=== PATIENT | male | born 1970 | race Caucasian/White ===

== ENCOUNTER 2018-03-21 18:33 | Inpatient (IN) ==
--- NOTE | 2018-03-21 18:55 | Emergency Department Note ---
Disposition Clinical Impression: Abdominal pain, Acute cholecystitis Disposition: Admitted As Inpatient Condition: Fair General Adult HPI - General Chief complaint: ED Abdominal Pain Stated complaint: ABD Pain Time Seen by Provider: 03/21/18 18:47 - History of Present Illness Pain Scale: 8 - Related Data Home Medications Medication Instructions Recorded Confirmed Cetirizine HCl [All Day Allergy] 10 mg PO DAILY 03/21/18 03/21/18 Pantoprazole Sodium [Protonix] 40 mg PO DAILY 03/21/18 03/21/18 Propranolol LA (24 HR) [Inderal LA] 60 mg PO DAILY 03/21/18 03/21/18 Allergies Allergy/AdvReac Type Severity Reaction Status Date / Time cephalexin [From Keflex] Allergy Hives Verified 03/21/18 18:43 Penicillins Allergy Hives Verified 03/21/18 18:43 Past Medical History - Past Medical History Medical history: Reports: asthma, coronary artery disease, GERD Surgical history: Reports: no surgical history Psychiatric history: Reports: no psych history - Social History Smoking Status: Current every day smoker Smokeless Tobacco Status: No Alcohol use: Reports: none Drug use: Reports: none Physical Exam - General General appearance: alert, in no apparent distress Course Vital Signs Temperature 97.7 F 03/21/18 18:39 Pulse Rate 82 03/21/18 18:39 Respiratory Rate 14 03/21/18 18:39 Blood Pressure 163/94 03/21/18 18:39 O2 Sat by Pulse Oximetry 97 03/21/18 18:39 Temperature 98.5 F 03/21/18 22:59 Pulse Rate 86 03/21/18 22:59 Respiratory Rate 16 03/21/18 22:59 Blood Pressure 151/92 03/21/18 22:59 O2 Sat by Pulse Oximetry 97 03/21/18 22:59 Oxygen Delivery Oxygen Delivery Room Air Medical Decision Making - Lab Data Result diagrams: 03/21/18 19:39 03/21/18 19:39 Lab Results 03/21/18 03/21/18 Range/Units 19:39 19:39 WBC 11.4 H (4.3-11.1) K/mcL RBC 4.97 (4.19-5.50) M/mcL Hgb 15.8 (12.9-16.9) g/dL Hct 45.1 (37.5-50.1) % MCV 90.7 (83.0-100.0) fL MCH 31.8 (28.0-33.3) pg MCHC 35.0 (31.6-35.5) g/dL RDW 12.9 (11.5-14.5) % Plt Count 198 (140-400) K/mcL MPV 10.2 (9.4-12.4) fL Immature Gran % 0.4 (0-4) % Seg Neutrophils % 67.8 % Lymphocytes % 21.8 % Monocytes % 7.1 % Eosinophils % 2.3 % Basophils % 0.6 % Neutrophils # 7.7 (1.6-8.9) K/mcL Lymphocytes # 2.5 (0.6-4.6) K/mcL Monocytes # 0.8 (0.0-1.3) K/mcL Eosinophils # 0.3 (0.0-0.6) K/mcL Basophils # 0.1 (0.0-0.2) K/mcL Sodium 139 (136-145) mEq/L Potassium 3.6 (3.5-5.1) mEq/L Chloride 103 (98-107) mEq/L Carbon Dioxide 30 H (23-29) mEq/L BUN 10 (6-20) mg/dL Creatinine 1.01 (0.70-1.30) mg/dL Est GFR ( Amer) > 60 (> 60) Est GFR (Non-Af Amer) > 60 (> 60) BUN/Creatinine Ratio 10 (6-26) Glucose 107 H (70-105) mg/dL Calculated Osmolality 288 (280-300) Calcium 9.0 (8.6-10.3) mg/dL Total Bilirubin 0.3 (0.3-1.0) mg/dL Direct Bilirubin 0.1 (0.0-0.2) mg/dL Indirect Bilirubin 0.2 (0.0-1.2) mg/dL AST 14 (13-39) Units/L ALT 20 (7-52) Units/L Alkaline Phosphatase 34 (34-104) Units/L Troponin I < 0.03 (< 0.04) ng/mL Serum Total Protein 6.4 (6.4-8.9) g/dL Albumin 4.1 (3.5-5.7) g/dL Globulin 2.3 L (2.4-3.5) g/dL Albumin/Globulin Ratio 1.8 (1.1-2.2) Lipase 36 (11-82) Units/L Attestation Statement - Attestation Attestation: I examined this patient and my medical decision-making was reviewed with the Resident Physician. I agree with the documented findings, disposition and treatment plan as described except to the extent set forth below. [id number] time provided Patient arrives complaining of epigastric pain that radiates to his left upper quadrant after he ate a smoke sausage at a street fair. He states he has had similar problems in the past related to dietary indiscretion. History of GERD. Triage vitals reviewed by me. patient does not appear in any acute distress
[2018-03-21] MEDS ORDERED: Ondansetron 4 MG/2 ML VIAL IVP ONE (19:04)
[2018-03-21] MEDS ORDERED: Pantoprazole 40 MG VIAL IVP ONE (19:04)
--- NOTE | 2018-03-21 19:12 | Emergency Department Note ---
Disposition Clinical Impression: Acute cholecystitis Abdominal pain Qualifiers: Abdominal location: right upper quadrant Qualified Code(s): R10.11 - Right upper quadrant pain Disposition: Admitted As Inpatient Condition: Fair Referrals: Teofilo Flores MD [Primary Care Provider] - Forms: ED Satisfaction Letter, Work/School Release Time of Disposition: 20:55 Abdominal Pain HPI - General Chief Complaint: ED Abdominal Pain Stated Complaint: ABD Pain Time Seen by Provider: 03/21/18 18:47 Source: patient Mode of arrival: ambulatory Limitations: no limitations Nursing Notes Reviewed: Yes Vital Signs Reviewed: Yes - History of Present Illness HPI Narrative: Patient is a 47-year-old male who presents to [facility] ED with a chief complaint of generalized abdominal pain. States his symptoms started 4 days ago after he ate a sausage at a food festival. States it is a burning sensation that radiates from his epigastric region all around his abdomen. Admits to some nausea and one episode of vomiting. No other symptoms of diarrhea. No chest pain, difficulty breathing, problems with urination. Denies any fevers or chills. States he has been taking Prevacid which has not been helping. Pt Subjective Complaint: abdominal pain Onset (ago): day(s) (4) Consistency: constant Location: diffuse Pain Severity: moderate Pain Scale: 8 Quality: burning Radiation: none Migration to: no migration Improves with: nothing Worsens with: nothing Associated symptoms: Reports: nausea, vomiting. Denies: diarrhea, fever, chills , constipation, dysuria Treatments prior to arrival: none - Related Data Home Medications Medication Instructions Recorded Confirmed Cetirizine HCl [All Day Allergy] 10 mg PO DAILY 03/21/18 03/21/18 Pantoprazole Sodium [Protonix] 40 mg PO DAILY 03/21/18 03/21/18 Propranolol LA (24 HR) [Inderal LA] 60 mg PO DAILY 03/21/18 03/21/18 Allergies Allergy/AdvReac Type Severity Reaction Status Date / Time cephalexin [From Keflex] Allergy Hives Verified 03/21/18 18:43 Penicillins Allergy Hives Verified 03/21/18 18:43 All systems ED: reviewed and negative except as stated. Abdominal Pain PMH - Past Medical History Medical history: Reports: asthma, coronary artery disease, GERD Male Surgical History: Reports: no surgical history Psychiatric history: Reports: no psych history - Social History Smoking status: Current every day smoker Alcohol use: Reports: none Drug use: Reports: none Physical Exam - General Limitations: no limitations General appearance: alert, in no apparent distress - Head Head exam: atraumatic - Eye Eye exam: Present: normal appearance, EOMI - ENT ENT exam: normal exam, normal oropharynx, mucous membranes moist - Neck Neck exam: Present: normal inspection, full ROM, trachea midline - Chest Chest inspection: Present: normal inspection, symmetric chest wall rise - Respiratory Respiratory exam: Present: normal lung sounds bilaterally - Cardiovascular Cardiovascular exam: Present: regular rate, normal rhythm, normal heart sounds - Abdominal Exam Abdominal exam: Present: soft, tenderness, normal bowel sounds Abdominal tenderness: Present: diffuse, mild - Extremities Exam Extremities exam: Present: normal inspection, full ROM. Absent: tenderness, pedal edema - Back Exam Back exam: Present: normal inspection, full ROM. Absent: tenderness - Neurological Exam Neurological exam: Present: alert, oriented X3 - Psychiatric Psychiatric exam: Present: normal affect, normal mood - Skin Skin exam: Present: warm Course Course Narrative: Patient seen and examined. Epigastric pain for the last 4 days. Patient is also nauseated. Abdominal lab work, troponin, EKG ordered. No prior abdominal surgeries. Zofran and Protonix were originally ordered. However patient refused this and wanted to have a GI cocktail since this helped him in the past. CT of the abdomen and pelvis without contrast ordered to rule out any acute abdominal pathology. - Consultations Consultation #1: Labwork shows mild leukocytosis of 11.4. Otherwise unremarkable. CT of the abdomen and pelvis shows signs of acute cholecystitis including wall thickening and pericholecystic fluid. I discussed these findings with the patient. I also discussed with surgeon Dr. Reddy who has accepted patient for admission. Patient to be nothing by mouth after midnight. Time: 20:53 Vital Signs Temperature 97.7 F 03/21/18 18:39 Pulse Rate 82 03/21/18 18:39 Respiratory Rate 14 03/21/18 18:39 Blood Pressure 163/94 03/21/18 18:39 O2 Sat by Pulse Oximetry 97 03/21/18 18:39 Temperature 97.7 F 03/21/18 18:39 Pulse Rate 82 03/21/18 18:39 Respiratory Rate 14 03/21/18 18:39 Blood Pressure 163/94 03/21/18 18:39 O2 Sat by Pulse Oximetry 97 03/21/18 18:39 Oxygen Delivery Oxygen Delivery Room Air Abdominal Pain - Medical Records Medical records reviewed: Yes I reviewed the patient's medical records. - Lab Data Lab results reviewed: Yes I reviewed the patient's lab results. - Radiology Data Radiology results reviewed: Yes I reviewed the patient's radiology results. Abdomen/Pelvis CT 03/21/18 19:05 IMPRESSION: Findings concerning for acute cholecystitis. D/ / Oniel Welch MD / Oniel Welch MD Interpreting Provider: Oniel Welch MD - EKG Data EKG attestation: Yes I reviewed and interpreted this EKG. EKG results narrative: EKG done at 1937 shows normal sinus rhythm with a rate of 81 bpm. Right bundle branch block present. Normal axis.
[2018-03-21 19:50] LABS: Basophils # 0.1 K/mcL (0.0-0.2); Basophils % 0.6 %; Eosinophils # 0.3 K/mcL (0.0-0.6); Eosinophils % 2.3 %; Hematocrit 45.1 % (37.5-50.1); Hemoglobin 15.8 g/dL (12.9-16.9); Immature Granulocytes % 0.4 % (0-4); Lymphocytes # 2.5 K/mcL (0.6-4.6); Lymphocytes % 21.8 %; Mean Corpuscular Hemoglobin 31.8 pg (28.0-33.3); Mean Corpuscular Volume 90.7 fL (83.0-100.0); Mean Platelet Volume 10.2 fL (9.4-12.4); Monocytes # 0.8 K/mcL (0.0-1.3); Monocytes % 7.1 %; Neutrophils # 7.7 K/mcL (1.6-8.9); Platelet Count 198 K/mcL (140-400); Red Blood Count 4.97 M/mcL (4.19-5.50); Red Cell Distribution Width 12.9 % (11.5-14.5); Segmented Neutrophils % 67.8 %
[2018-03-21] MEDS ORDERED: GI Cocktail 40 ML EACH PO ONE (20:02)
[2018-03-21 20:12] LABS: Alanine Aminotransferase 20 Units/L (7-52); Albumin 4.1 g/dL (3.5-5.7); Albumin/Globulin Ratio 1.8 (1.1-2.2); Alkaline Phosphatase 34 Units/L (34-104); Aspartate Amino Transferase 14 Units/L (13-39); BUN/Creatinine Ratio 10 (6-26); Bilirubin,Direct 0.1 mg/dL (0.0-0.2); Bilirubin,Indirect 0.2 mg/dL (0.0-1.2); Bilirubin,Total 0.3 mg/dL (0.3-1.0); Blood Urea Nitrogen 10 mg/dL (6-20); Carbon Dioxide 30 mEq/L (23-29); Chloride 103 mEq/L (98-107); Globulin 2.3 g/dL (2.4-3.5); Glucose 107 mg/dL (70-105); Lipase 36 Units/L (11-82); Osmolality,Calculated 288 (280-300); Potassium 3.6 mEq/L (3.5-5.1); Sodium 139 mEq/L (136-145); Total Protein 6.4 g/dL (6.4-8.9); Troponin I < 0.03 ng/mL (< 0.04); eGFR For African Americans > 60 (> 60); eGFR For Non-African Americans > 60 (> 60)
[2018-03-21] MEDS ORDERED: OXYCODONE Oral CONC 10 MG/0.5 ML ORAL.SYG SL PRN (20:55)
[2018-03-21] MEDS ORDERED: *HR* OxyCODONE/APAP 10/325 TABLET PO PRN (20:55)
[2018-03-21] MEDS ORDERED: Ondansetron 4 MG/2 ML VIAL IVP PRN (20:57)
[2018-03-21] MEDS ORDERED: 0.9 % Sodium Chloride 1,000 ML IVC SCH (21:00)
[2018-03-21] MEDS: *HR* Metoprolol 5 MG/5 ML VIAL IVP SCH (22:20)
[2018-03-21] MEDS: MetroNIDAZOLE 500 MG/100 ML 500 MG/100 ML BAG IVPB SCH (23:57)
[2018-03-22] MEDS ORDERED: cefOXitin 2,000 MG in Water for inj. (sterile) 20 ML 20 ML IVP SCH
[2018-03-22 05:25] LABS: Hematocrit 46.8 % (37.5-50.1); Hemoglobin 16.3 g/dL (12.9-16.9); Mean Corpuscular HGB Conc 34.8 g/dL (31.6-35.5); Mean Corpuscular Hemoglobin 32.2 pg (28.0-33.3); Mean Corpuscular Volume 92.5 fL (83.0-100.0); Mean Platelet Volume 10.6 fL (9.4-12.4); Platelet Count 211 K/mcL (140-400); Red Blood Count 5.06 M/mcL (4.19-5.50); Red Cell Distribution Width 12.8 % (11.5-14.5)
[2018-03-22] MEDS: *HR* Metoprolol 5 MG/5 ML VIAL IVP SCH ×3 (05:39→19:00)
[2018-03-22 05:49] LABS: Amylase 35 Units/L (29-103); BUN/Creatinine Ratio 8 (6-26); Blood Urea Nitrogen 8 mg/dL (6-20); Carbon Dioxide 29 mEq/L (23-29); Chloride 104 mEq/L (98-107); Glucose 114 mg/dL (70-105); Lipase 15 Units/L (11-82); Osmolality,Calculated 287 (280-300); Potassium 4.5 mEq/L (3.5-5.1); Sodium 139 mEq/L (136-145); eGFR For African Americans > 60 (> 60); eGFR For Non-African Americans > 60 (> 60)
[2018-03-22 07:07] LABS: Alanine Aminotransferase 21 Units/L (7-52); Albumin 4.2 g/dL (3.5-5.7); Albumin/Globulin Ratio 1.8 (1.1-2.2); Alkaline Phosphatase 35 Units/L (34-104); Aspartate Amino Transferase 13 Units/L (13-39); Bilirubin,Direct 0.1 mg/dL (0.0-0.2); Bilirubin,Indirect 0.4 mg/dL (0.0-1.2); Bilirubin,Total 0.5 mg/dL (0.3-1.0); Globulin 2.4 g/dL (2.4-3.5); Total Protein 6.6 g/dL (6.4-8.9)
--- NOTE | 2018-03-22 07:30 | General Surg History&Physical ---
<Hector Ayala - Last Filed: 03/22/18 07:22> Date of Encounter: 03/22/18 Time of Encounter: 06:45 Assessment and Plan (1) Acute cholecystitis Current Visit: Yes Status: Acute Fatty food intolerance + positive CT findings including GB wall thickening, stones in lumen, and pericholecystic fluid. Pancreatic enzymes were negative and pt was not relieved with PPIs. PUD less likely. Pancreatitis unlikely. - plan is lap cholecystectomy - NPO pending surgery - Cont Abx (Cipro/Flagyl day 1) - IVF at maintenance rate - other supportive measures as needed - dispo pending timing of surgery and post-op recovery (2) Tobacco use Current Visit: Yes Status: Acute Counseled cessation. Pt declined nicoderm. History of Present Illness Chief complaint: epigastric burning HPI: Mr. Mukherjee is a 47 year old male with no formal medical diagnoses or prior intra -abdominal surgeries. He does smoke 1.5 packs of cigarettes daily x30 years. He has had history of epigastric burning pain for the past month that is associated with greasy food. States takes PPI for this, but denies relief. Acute course began on Tuesday when patient ate a bratwurst at a food festival. At that time, pain was moderate and was more widespread in epigastrium and LUQ/ RUQ. He denies radiation, migration, or focal positional changes with worst pain persisting at mid epigastrium. Denies vomiting, but has been nauseous. No abnormal stools, hematochezia, melena, dysuria, or hematuria. No associated back pain. He does say he had a "scope down my throat" several years ago at an outside hospital which he says only demonstrated inflammation. This record is not available to us at present. ED work up was overall negative except for a CT-abd which demonstrated gallbladder wall thickening, pericholecystic fluid, and stones within GB lumen. Pt admitted NPO. Denies: weight change, dizziness/lightheadedness, syncope, fevers, chills, sweats, blurred vision, headache, chest pain, palpitations, SOA, vomiting, diarrhea, constipation, hematochezia, melena, dysuria, hematuria, leg swelling, or rash. Past Med Surg Social Fam HX - Past Medical History Attestation: Yes The following information was validated with the patient. Source: patient Medical history: asthma, coronary artery disease, GERD Psychiatric history: no psych history - Past Surgical History Surgical History: no surgical history - Social History Smoking Status: Current every day smoker (1.5 ppd x30 years) Smokeless Tobacco Status: No Alcohol use: none Drug use: none Medications and Allergies Cetirizine HCl [All Day Allergy] 10 mg PO DAILY 03/21/18 [History] Pantoprazole Sodium [Protonix] 40 mg PO DAILY 03/21/18 [History] Propranolol LA (24 HR) [Inderal LA] 60 mg PO DAILY 03/21/18 [History] 3 Allergy/AdvReac Type Severity Reaction Status Date / Time cephalexin [From Keflex] Allergy Hives Verified 03/21/18 18:43 Penicillins Allergy Hives Verified 03/21/18 18:43 Review of Systems All systems PM: The remainder of the systems were reviewed and are negative - Constitutional as per [facility] General Surgery Exam Initial Vital Signs Temp Pulse Resp BP Pulse Ox 97.7 F 82 14 163/94 97 03/21/18 18:39 03/21/18 18:39 03/21/18 18:39 03/21/18 18:39 03/21/18 18:39 VITAL SIGNS: Reviewed. See [facility] GENERAL: supine in bed and appears comfortable. Conversational and cooperative. HEENT: Normocephalic, PER, EOMi, oropharynx pink/moist, no JVD noted CV: b/l rad pulses 2+, RRR, no murmurs or gallops, no JVD seen RESPIRATORY: CTAB without wheezes, rales, or rhonchi ABD: soft, tender in UQs and epigastrium with no guarding, no rebound/distention /rigidity, no peritoneal signs EXTREMITY: grossly normal motor function, no pedal edema NEUROLOGIC EXAM: AOx3, obeys commands, no speech deficits. PSYCHIATRIC: normal mood and affect SKIN: no gross lesions, rashes, or skin changes Results - Labs 03/22/18 04:41 03/22/18 04:41 Abnormal lab results WBC 12.3 K/mcL (4.3-11.1) H 03/22/18 04:41 Glucose 114 mg/dL (70-105) H 03/22/18 04:41 POC Glucose 116 mg/dL (70-99) H 03/22/18 05:36 Diabetes panel 03/22/18 Range/Units 04:41 Sodium 139 (136-145) mEq/L Potassium 4.5 (3.5-5.1) mEq/L Chloride 104 (98-107) mEq/L Carbon Dioxide 29 (23-29) mEq/L BUN 8 (6-20) mg/dL Creatinine 0.99 (0.70-1.30) mg/dL Glucose 114 H (70-105) mg/dL Calcium 9.0 (8.6-10.3) mg/dL AST 13 (13-39) Units/L ALT 21 (7-52) Units/L Alkaline Phosphatase 35 (34-104) Units/L Albumin 4.2 (3.5-5.7) g/dL Calcium panel 03/22/18 Range/Units 04:41 Calcium 9.0 (8.6-10.3) mg/dL Albumin 4.2 (3.5-5.7) g/dL Pituitary panel 03/22/18 Range/Units 04:41 Sodium 139 (136-145) mEq/L Potassium 4.5 (3.5-5.1) mEq/L Chloride 104 (98-107) mEq/L Carbon Dioxide 29 (23-29) mEq/L BUN 8 (6-20) mg/dL Creatinine 0.99 (0.70-1.30) mg/dL Glucose 114 H (70-105) mg/dL Calcium 9.0 (8.6-10.3) mg/dL Adrenal panel 03/22/18 Range/Units 04:41 Sodium 139 (136-145) mEq/L Potassium 4.5 (3.5-5.1) mEq/L Chloride 104 (98-107) mEq/L Carbon Dioxide 29 (23-29) mEq/L BUN 8 (6-20) mg/dL Creatinine 0.99 (0.70-1.30) mg/dL Glucose 114 H (70-105) mg/dL Calcium 9.0 (8.6-10.3) mg/dL Total Bilirubin 0.5 (0.3-1.0) mg/dL AST 13 (13-39) Units/L ALT 21 (7-52) Units/L Alkaline Phosphatase 35 (34-104) Units/L Albumin 4.2 (3.5-5.7) g/dL All other labs normal. <Clark Reddy T - Last Filed: 03/22/18 10:23> Date of Encounter: 03/22/18 History of Present Illness HPI: Mr. Mukherjee is a 47 year old male Review of Systems All systems PM: The remainder of the systems were reviewed and are negative General Surgery Exam Initial Vital Signs Temp Pulse Resp BP Pulse Ox 97.7 F 82 14 163/94 97 03/21/18 18:39 03/21/18 18:39 03/21/18 18:39 03/21/18 18:39 03/21/18 18:39 Results - Labs 03/22/18 04:41 03/22/18 04:41 Abnormal lab results WBC 12.3 K/mcL (4.3-11.1) H 03/22/18 04:41 Glucose 114 mg/dL (70-105) H 03/22/18 04:41 POC Glucose 116 mg/dL (70-99) H 03/22/18 05:36 Diabetes panel 03/22/18 Range/Units 04:41 Sodium 139 (136-145) mEq/L Potassium 4.5 (3.5-5.1) mEq/L Chloride 104 (98-107) mEq/L Carbon Dioxide 29 (23-29) mEq/L BUN 8 (6-20) mg/dL Creatinine 0.99 (0.70-1.30) mg/dL Glucose 114 H (70-105) mg/dL Calcium 9.0 (8.6-10.3) mg/dL AST 13 (13-39) Units/L ALT 21 (7-52) Units/L Alkaline Phosphatase 35 (34-104) Units/L Albumin 4.2 (3.5-5.7) g/dL Calcium panel 03/22/18 Range/Units 04:41 Calcium 9.0 (8.6-10.3) mg/dL Albumin 4.2 (3.5-5.7) g/dL Pituitary panel 03/22/18 Range/Units 04:41 Sodium 139 (136-145) mEq/L Potassium 4.5 (3.5-5.1) mEq/L Chloride 104 (98-107) mEq/L Carbon Dioxide 29 (23-29) mEq/L BUN 8 (6-20) mg/dL Creatinine 0.99 (0.70-1.30) mg/dL Glucose 114 H (70-105) mg/dL Calcium 9.0 (8.6-10.3) mg/dL Adrenal panel 03/22/18 Range/Units 04:41 Sodium 139 (136-145) mEq/L Potassium 4.5 (3.5-5.1) mEq/L Chloride 104 (98-107) mEq/L Carbon Dioxide 29 (23-29) mEq/L BUN 8 (6-20) mg/dL Creatinine 0.99 (0.70-1.30) mg/dL Glucose 114 H (70-105) mg/dL Calcium 9.0 (8.6-10.3) mg/dL Total Bilirubin 0.5 (0.3-1.0) mg/dL AST 13 (13-39) Units/L ALT 21 (7-52) Units/L Alkaline Phosphatase 35 (34-104) Units/L Albumin 4.2 (3.5-5.7) g/dL All other labs normal. - Attending Attestation I examined this patient and my medical decision-making was reviewed with the Resident Physician. I agree with the documented findings, disposition and treatment plan as described except to the extent set forth below. The patient is seen and evaluated on morning rounds with the resident. I personally reviewed the CAT scan films and shared this information with the patient and correlated with his physical examination. Diagnosis is acute: Cholelithiasis and cholecystitis. We will continue IV antibiotics today. Proceed with laparoscopic cholecystectomy later today. Clark Reddy MD FACS
[2018-03-22] MEDS ORDERED: 0.9 % Sodium Chloride 1,000 ML IVC SCH (07:40)
[2018-03-22] MEDS: MetroNIDAZOLE 500 MG/100 ML 500 MG/100 ML BAG IVPB SCH ×2 (09:42→16:57)
[2018-03-22] MEDS ORDERED: Levalbuterol Neb 0.63 MG/3 ML IH SCH (15:30)
[2018-03-22] MEDS ORDERED: Famotidine 20 MG/2 ML VIAL IVP ONE (15:43)
[2018-03-22] MEDS ORDERED: Acetaminophen IV 1,000 MG/100 ML INFUS..BTL IVPB ONE (15:43)
--- NOTE | 2018-03-22 15:50 | Anesthesia Evaluation PreOp ---
Date of Encounter: 03/22/18 Time of Encounter: 15:30 - Past History Planned Operation: Lap Cholecystectomy Cardiac History: Arrhythmia (Tachycardia), Other (CAD) Pulmonary History: Smoker, Asthma HEALTH SERVICES ADMINISTRATOR History: Denies Any Significant HX Other Medical History: GERD Anesthesia History: No Prior Anesthetic Complications Alcohol Use: none Drug use: none Medications and Allergies Cetirizine HCl [All Day Allergy] 10 mg PO DAILY 03/21/18 [History] Pantoprazole Sodium [Protonix] 40 mg PO DAILY 03/21/18 [History] Propranolol LA (24 HR) [Inderal LA] 60 mg PO DAILY 03/21/18 [History] 3 Allergy/AdvReac Type Severity Reaction Status Date / Time cephalexin [From Keflex] Allergy Hives Verified 03/21/18 18:43 Penicillins Allergy Hives Verified 03/21/18 18:43 - Meds/Allergy Pre-op Review Medications Reviewed: Yes Allergies Reviewed: Yes Beta Blockers on Current Med List: Yes (Metoprolol given midnight 5-9) Anesthesia Results - Labs 03/22/18 04:41 03/22/18 04:41 - Imaging EKG: report reviewed (SR) Additional studies: Stress Test 2016 negative for ischemia, ECHO EF 55% Anesthesia Exam Vital Signs/O2 Sat/Glucose, Most Current Temp Pulse Resp BP Pulse Ox 03/22/18 15:32 18 95 03/22/18 12:09 98.5 F 101 18 142/91 95 Height: 5'7 Weight: 177 lbs NPO (# of Hours): MN Pain Scale: 0 - HEENT Pupil (Motor): Pupils equal, EOMI Mallampati: III Oral Opening: Less than or equal to 3 - HEALTH SERVICES ADMINISTRATOR LOC: Oriented HEALTH SERVICES ADMINISTRATOR Motor: Normal RUE, Normal LUE, Normal RLE, Normal LLE, Normal Face HEALTH SERVICES ADMINISTRATOR Sensory: Normal: RUE, LUE, RLE, LLE, Face - Cardiac Rhythm: Regular Murmur: None JVD: No Carotid Bruit: No - Pulmonary Breath Sounds: bilateral Clear Respiratory Effort: Symmetrical Anesthesia Assess/Plan ASA Score: 3 (CAD Tobacco) Modified Glover Scale for Level of Consciousness: Cooperative, oriented, and tranquil Anesthetic Plan: General Monitoring Plan: Standard Monitors Recovery Plan: PACU (Discussed GA, agrees to proceed)
[2018-03-22] MEDS ORDERED: *HR* FentaNYL (PF) 100 MCG/2 ML VIAL ONE ×2 (15:57→16:53)
[2018-03-22] MEDS ORDERED: *HR* Midazolam HCl 2 MG/2 ML VIAL ONE (15:57)
[2018-03-22] MEDS ORDERED: *HR* Propofol 200 MG/20 ML VIAL IVP ONE (15:58)
[2018-03-22] MEDS ORDERED: *HR* Rocuronium Bromide 50 MG/5 ML VIAL ONE (16:01)
[2018-03-22] MEDS ORDERED: Lidocaine -MPF 2% 2 ML VIAL ONE (16:01)
[2018-03-22] MEDS ORDERED: *HR* Succinylcholine 200 MG/10 ML VIAL IVP ONE (16:01)
[2018-03-22] MEDS ORDERED: Acetaminophen IV 1,000 MG/100 ML INFUS..BTL ONE (16:04)
[2018-03-22] MEDS ORDERED: Famotidine 20 MG/2 ML VIAL ONE (16:04)
[2018-03-22] MEDS ORDERED: CefOXitin 1,000 MG VIAL ONE (16:07)
[2018-03-22] MEDS ORDERED: MetroNIDAZOLE 500 MG/100 ML 500 MG/100 ML BAG IVPB ONE (16:07)
[2018-03-22] MEDS ORDERED: Isovue-300 50 ML VIAL IVP ONE (16:16)
[2018-03-22] MEDS ORDERED: Ondansetron 4 MG/2 ML VIAL IVP ONE (16:24)
[2018-03-22] MEDS ORDERED: *HR* OxyCODONE Immed Rel 5 MG TABLET PO PRN (16:24)
[2018-03-22] MEDS ORDERED: *HR* HYDROmorphone 2 MG TABLET PO PRN (16:24)
[2018-03-22] MEDS ORDERED: MORPHINE SUL Oral CONC 10 MG/0.5 ML ORAL.SYG SL PRN (16:24)
[2018-03-22] MEDS ORDERED: Dexamethasone 4 MG/ML VIAL ONE (16:50)
[2018-03-22] MEDS ORDERED: Ondansetron 4 MG/2 ML VIAL ONE (16:50)
[2018-03-22] MEDS ORDERED: Ketorolac 30 MG/ML VIAL ONE (16:52)
[2018-03-22] MEDS ORDERED: Neostigmine Methylsulfate 3 MG/3 ML SYRINGE ONE (16:52)
[2018-03-22] MEDS ORDERED: Esmolol 100 MG/10 ML VIAL IVP ONE (17:00)
--- NOTE | 2018-03-22 17:52 | Operative Note ---
Date of procedure: 03/22/18 Pre-op diagnosis: Acute cholecystitis and cholelithiasis Post-op diagnosis: same Procedure: Laparoscopic cholecystectomy, cholangiogram, +30% acute cholecystitis with gallbladder necrosis Anesthesia: CALEBA Surgeon: Clark Reddy Was there an physiotherapy assistant present: Yes Stunt Driver: Siomara Huang Estimated blood loss (cc): 50 Specimen: Gallbladder and contents Condition: stable Disposition: PACU Procedure in Detail: After informed consent the patient is taken to the major operative suite placed in the supine position and given adequate general endotracheal anesthesia. The abdomen was prepped and draped in sterile fashion utilizing ChloraPrep and standard draping techniques. Timeout was taken and the patient was identified. I made a vertical midline incision below the umbilicus and dissected down the level of the fascia. 2 stitches of 0 Vicryl were placed in the action and the abdomen was entered visually. I placed a Gomez trocar. The abdomen was insufflated to 15 mmHg pressure CO2. The gallbladder was visualized. The gallbladder was acutely inflamed and encased in inflammatory adhesions as well as obstructed. Portions the gallbladder appeared to be necrotic. The gallbladder was decompressed with decompression needle. I suctioned pus from the lumen of the gallbladder. The gallbladder was grasped and elevated. Portions of the gallbladder wall were necrotic making dissection very difficult. I dissected the neck of the gallbladder and I was able to identify the cystic duct and cystic artery. 2 surgical clips were placed proximally on the cystic artery and one distally. A surgical clip was placed on the neck of the gallbladder. I obtained a cholangiogram. The cholangiogram was normal. The cholangiogram catheter was removed and the cystic duct was secured with 2 surgical clips proximally. I then divided the cystic duct and the cystic artery. The gallbladder dissection off the gallbladder fossa was very difficult. There were areas of patchy necrosis and direct erosion into the hepatic tissue. The gallbladder ruptured in several areas and spilled gallstones. These were later recovered with stone forceps. The gallbladder was removed through the #11 port site using a specimen bag. I replaced the #11 port irrigated with copious amounts of antibiotic containing solution. There is tremendous amount of inflammation in subhepatic space. I placed #10 Jasvir- Valdez drain. This was secured with 2-0 silk. All trochars were removed. The fascia was closed with 0 Vicryl and the skin closed with 2-0 Vicryl and 4-0 Vicryl. The patient tolerated the procedure well and is transferred to recovery in stable condition.
--- NOTE | 2018-03-22 18:27 | Anesthesia Evaluation Post Op ---
Date of Encounter: 03/22/18 Time of Encounter: 18:35 - Vital Signs Vital Signs: Vital Signs/O2 Sat/Glucose, Most Current Temp Pulse Resp BP Pulse Ox 03/22/18 18:13 82 18 116/82 94 03/22/18 18:03 74 16 121/86 99 03/22/18 17:53 98.3 F 78 20 107/58 96 03/22/18 15:32 18 95 - Lungs Lungs: Clear Ascult./Percussion - Airway Airway: Non-obstructed - Cardiovascular Regular Rate - Mental Status Mental Status: Alert & Oriented, Answers Appropriately - Pain Pain Scale: 1 - Nausea Vomiting Nausea Vomiting: Not Present - Hydration Hydration: Ice chips - Discharge PostOp Status: Transfer Patient to floor
[2018-03-22] MEDS ORDERED: OXYCODONE Oral CONC 10 MG/0.5 ML ORAL.SYG SL PRN (19:00)
[2018-03-22] MEDS ORDERED: Ondansetron 4 MG/2 ML VIAL IVP PRN (19:00)
[2018-03-22] MEDS: *HR* OxyCODONE/APAP 10/325 TABLET PO PRN (20:58)
[2018-03-22] MEDS: 0.9 % Sodium Chloride 1,000 ML IVC SCH (20:59)
[2018-03-22] MEDS: *HR* Heparin 5,000 UNIT/ML VIAL SQ SCH (20:59)
[2018-03-23] MEDS ORDERED: *HR* Metoprolol 5 MG/5 ML VIAL IVP SCH
[2018-03-23] MEDS ORDERED: MetroNIDAZOLE 500 MG/100 ML 500 MG/100 ML BAG IVPB SCH
[2018-03-23] MEDS: *HR* OxyCODONE/APAP 10/325 TABLET PO PRN ×3 (01:07→09:43)
[2018-03-23] MEDS: *HR* Heparin 5,000 UNIT/ML VIAL SQ SCH (05:21)
--- NOTE | 2018-03-23 05:27 | Electrocardiograph Report ---
[place] [id number] Test Date: 2018-03-21 Pat Name: Epifanio Mukherjee Department: 103 Room: [facility] Gender: M Personal Care Worker: : 1970 Requested By: Abi Quinones Order Number: [id number] Reading MD: Bong Mora Measurements Intervals [place] Rate: 81 P: 66 RI: 163 QRS: 24 QRSD: 88 T: 49 QT: 343 QTc: 380 Interpretive Statements SINUS RHYTHM POSSIBLE RIGHT VENTRICULAR CONDUCTION DELAY Electronically Signed On 03-23-2018 5:26:07 EDT by Bong Mora
[2018-03-23] MEDS: 0.9 % Sodium Chloride 1,000 ML IVC SCH (05:35)
[2018-03-23 06:36] LABS: Basophils % 0.2 %; Hematocrit 42.3 % (37.5-50.1); Immature Granulocytes % 0.3 % (0-4); Lymphocytes # 1.1 K/mcL (0.6-4.6); Lymphocytes % 9.2 %; Mean Corpuscular Hemoglobin 31.8 pg (28.0-33.3); Mean Corpuscular Volume 93.4 fL (83.0-100.0); Mean Platelet Volume 10.8 fL (9.4-12.4); Monocytes # 0.8 K/mcL (0.0-1.3); Monocytes % 6.3 %; Neutrophils # 10.4 K/mcL (1.6-8.9); Platelet Count 194 K/mcL (140-400); Red Blood Count 4.53 M/mcL (4.19-5.50); Red Cell Distribution Width 13.1 % (11.5-14.5)
[2018-03-23 06:37] LABS: Hemoglobin 14.4 g/dL (12.9-16.9)
[2018-03-23 06:39] LABS: BUN/Creatinine Ratio 12 (6-26); Blood Urea Nitrogen 11 mg/dL (6-20); Calcium 8.2 mg/dL (8.6-10.3); Carbon Dioxide 22 mEq/L (23-29); Chloride 106 mEq/L (98-107); Glucose 105 mg/dL (70-105); Osmolality,Calculated 286 (280-300); Potassium 4.4 mEq/L (3.5-5.1); Sodium 138 mEq/L (136-145); eGFR For African Americans > 60 (> 60); eGFR For Non-African Americans > 60 (> 60)
[2018-03-23 06:52] VITALS: BP 122/76
--- NOTE | 2018-03-23 07:31 | Discharge Summary ---
<Hector Ayala - Last Filed: 03/23/18 07:27> - NOTES TO OUTPATIENT PROVIDER Notes to Outpatient Provider: Patient is status post laparoscopic cholecystectomy; gallbladder was removed with purulence and necrotic features. Patient discharged with NATHEN drain in place and close follow-up with surgery as outpatient. Patient was sent home to complete full seven-day course of ciprofloxacin and Flagyl. Patient does have comorbidities including significant smoking history, possible COPD, and stated history of CAD, all of which may need to be revisited. Date of Encounter: 03/23/18 Time of Encounter: 06:30 - Discharge Diagnosis (1) Acute cholecystitis Priority: Primary Status: Acute Comments: POD#1 laparoscopic cholecystectomy -- GB has areas of wall necrosis, adherence to liver margin, and purulent accumulation. D/C'ed on 7-days of Abx. (2) Tobacco use Priority: Secondary Status: Chronic Comments: Counseled cessation General Surgery Exam Initial Vital Signs Temp Pulse Resp BP Pulse Ox 97.7 F 82 14 163/94 97 03/21/18 18:39 03/21/18 18:39 03/21/18 18:39 03/21/18 18:39 03/21/18 18:39 VITAL SIGNS: Reviewed. See [facility] GENERAL: comfortably supine in bed, pleasant, conversational, cooperates with exam HEENT: Normocephalic, PER, EOMi, oropharynx pink/moist, no JVD noted. CV: b/l rad pulses 2+, RRR, no murmurs or gallops, no JVD RESPIRATORY: CTAB with virtually no wheezing on exam today ABD: soft, non-tender, no rebound/guarding/rigidity, no peritoneal signs INCISION: trocar sites are clean, dry, intact without purulence/bleeding/edema/ rubor/calor DRAINS: NATHEN site without signs of infection; bulb contains approximately 20 mLs of clear serosanguinous fluid EXTREMITY: grossly normal motor function, no pedal edema, SCDs in place NEUROLOGIC EXAM: AOx3, obeys commands, no speech deficits. PSYCHIATRIC: normal mood and affect SKIN: no gross lesions, rashes, or skin changes - Hospital Course Hospital course: Mr. Mukherjee is a 47 year old male with history of smoking, and possible CAD who is admitted for subacute epigastric abdominal pain that acutely worsened on . Initialize normal, however, CT demonstrated acutely inflamed gallbladder. Patient was kept NPO and taken to the OR on 03/22/[address] teixeira. Laparoscopic cholecystectomy successfully performed; per operative note, gross quality of gallbladder was described as acutely inflamed, encased in inflammatory adhesions, obstructed, distended with pus, and with areas of wall necrosis. NATHEN drain was placed in the OR; one day postop, NTAHEN drain collects minimal serosanguinous fluid. No signs of postop incision site infection. Patient has been on antibiotics throughout hospital course including ciprofloxacin and Flagyl. Labs and vitals have been normal throughout hospitalization. Pain has been well-controlled with oral oxycodone. Pain is overall significantly improved and initial symptoms have apparently resolved per patient, with expected post op surgical site tenderness. No evidence of acute blood loss on a.m. labs. No significant signs of postop ileus as patient does have positive flatus, patient does have appetite and is tolerating PO intake. Vital signs stable upon discharge. Despite condition of gallbladder, feel patient is a viable candidate for discharge today given his significant improvement; have arranged for close follow-up in general surgery clinic with Dr. Reddy on 03/28/2018. NATHEN drain left in place, patient has been given aftercare instructions. All cautions have been explained to the patient and he expresses understanding. Patient requests referral to new PCP, and will be referred to the residency clinic to see Dr. Eduar Delgado. - Time Spent with Patient Total time spent providing and/or coordinating discharge services: - Discharge Medications Prescriptions: Ondansetron ODT [Zofran ODT] 4 mg SL Q6HR #15 tab.rapdis OxyCODONE/APAP 5/325 [Percocet 5/325 MG] 1 each PO Q6HR PRN 7 Days #28 tablet PRN Reason: Severe Pain Ibuprofen 800 mg PO Q8HR PRN #42 tablet PRN Reason: Mild Pain Ciprofloxacin [Cipro] 500 mg PO BID #14 tablet Docusate Sodium [Colace] 100 mg PO BID 7 Days #14 capsule metroNIDAZOLE [Flagyl] 500 mg PO TID 7 Days #21 tablet Home Medications: Cetirizine HCl [All Day Allergy] 10 mg PO DAILY 03/21/18 [History] Pantoprazole Sodium [Protonix] 40 mg PO DAILY 03/21/18 [History] Propranolol LA (24 HR) [Inderal LA] 60 mg PO DAILY 03/21/18 [History] Ciprofloxacin [Cipro] 500 mg PO BID #14 tablet 03/23/18 [Rx] Docusate Sodium [Colace] 100 mg PO BID 7 Days #14 capsule 03/23/18 [Rx] Ibuprofen 800 mg PO Q8HR PRN #42 tablet 03/23/18 [Rx] Ondansetron ODT [Zofran ODT] 4 mg SL Q6HR #15 tab.rapdis 03/23/18 [Rx] OxyCODONE/APAP 5/325 [Percocet 5/325 MG] 1 each PO Q6HR PRN 7 Days #28 tablet [Rx] metroNIDAZOLE [Flagyl] 500 mg PO TID 7 Days #21 tablet 03/23/18 [Rx] Allergies/Adverse Reactions: 3 Allergy/AdvReac Type Severity Reaction Status Date / Time cephalexin [From Keflex] Allergy Hives Verified 03/21/18 18:43 Penicillins Allergy Hives Verified 03/21/18 18:43 Date of admission: 03/22/18 17:44 Primary care physician: Teofilo Flores MD Discharging clinician: Hector Ayala Anticipated date of discharge: 03/23/18 Labs on day of discharge: Labs from last 24 hours 03/23/18 03/23/18 04:56 04:56 WBC 12.3 H RBC 4.53 Hgb 14.4 D Hct 42.3 MCV 93.4 MCH 31.8 MCHC 34.0 RDW 13.1 Plt Count 194 MPV 10.8 Immature Gran % 0.3 Seg Neutrophils % 84.0 Lymphocytes % 9.2 Monocytes % 6.3 Eosinophils % 0.0 Basophils % 0.2 Neutrophils # 10.4 H Lymphocytes # 1.1 Monocytes # 0.8 Eosinophils # 0.0 Basophils # 0.0 Sodium 138 Potassium 4.4 Chloride 106 Carbon Dioxide 22 L BUN 11 Creatinine 0.94 Est GFR ( Amer) > 60 Est GFR (Non-Af Amer) > 60 BUN/Creatinine Ratio 12 Glucose 105 Calculated Osmolality 286 Calcium 8.2 L - Patient Status Disposition: Home, Self-Care Condition: Good Functional capacity at discharge: independent ambulation Overall status at discharge: patient is progressing back to baseline - Discharge Instructions Instructions: Low Fat Diet (DC), Jasvir-Valdez Drain Care (DC), Laparoscopic Cholecystectomy (DC) Follow Up With: Clark Reddy MD [Partnered Physician] - 03/28/18 11:00 am Eduar Delgado DO [Resident] - 04/14/18 4:00 pm (within 4 weeks; needs record release from previous PCP, Dr. Teofilo Flores to be sent to [facility] -- Dr. Eduar Delgado. Spoke with Dr. Flores's Office, they will need patient to come in and sign a release to send records. Spoke with patient and he will go in and sign release. Thank you) Additional Instructions: Please review discharge instruction handouts provided to you, particularly regarding NATHEN drain care and diet. Please take antibiotics until completion. Follow up with General Surgery Clinic on 03/28/[address] Reddy. Follow up with Dr. Eduar Delgado in the residency clinic on 04/14/18 at 1pm to establish care with new PCP. Call the general surgery clinic or return to the ER for further evaluation if you have new or worsening symptoms including, but not limited to: fevers, chills , sweats, body aches, general fatigue, chest pain, heart palpitations, worsening shortness of breath, nausea, vomiting, recurrent abdominal pain, or any signs of blood in your stools. - Diet and Activity Activity: increase activity as tolerated Diet: low fat, low cholesterol <Clark Reddy - Last Filed: 03/24/18 11:48> Date of Encounter: 03/23/18 General Surgery Exam Initial Vital Signs Temp Pulse Resp BP Pulse Ox 97.7 F 82 14 163/94 97 03/21/18 18:39 03/21/18 18:39 03/21/18 18:39 03/21/18 18:39 03/21/18 18:39 - Hospital Course Hospital course: Mr. Mukherjee is a 47 year old male - Time Spent with Patient Total time spent providing and/or coordinating discharge services: Date of admission: 03/22/18 17:44 Primary care physician: Teofilo Flores MD - Attending Attestation For this encounter, I have reviewed the [employer] or PA documentation, treatment plan, and medical decision making; and I have had face to face time with this patient. The patient was seen and evaluated on morning rounds with resident. He is ready for discharge on oral antibiotics. Clark Reddy MD FACS
[2018-03-23] MEDS ORDERED: Propranolol LA (24 HR) 60 MG CAP.SA.24H PO SCH ×2 (09:00)
== END 2018-03-23 10:18 | disposition home or self-care (01) | DRG 263 ==
LOC: 3ANU 18:33 → EMEROO 18:33 → 3ANU 21:18
PROVIDERS: ADMIT Surgery; ATTEND Surgery

== ENCOUNTER 2019-12-24 13:52 | Observation (INO) ==
[2019-12-24] MEDS ORDERED: Aspirin 325 MG TABLET PO ONE (14:06)
[2019-12-24 14:57] LABS: Basophils # 0.1 K/mcL (0.0-0.2); Basophils % 0.7 %; Eosinophils # 0.1 K/mcL (0.0-0.6); Eosinophils % 0.9 %; Hematocrit 53.6 % (37.5-50.1); Hemoglobin 18.3 g/dL (12.9-16.9); Immature Granulocytes % 0.3 % (0-4); Lymphocytes # 1.9 K/mcL (0.6-4.6); Lymphocytes % 19.7 %; Mean Corpuscular HGB Conc 34.1 g/dL (31.6-35.5); Mean Corpuscular Hemoglobin 32.1 pg (28.0-33.3); Mean Platelet Volume 10.8 fL (9.4-12.4); Monocytes # 0.6 K/mcL (0.0-1.3); Monocytes % 6.1 %; Platelet Count 232 K/mcL (140-400); Red Cell Distribution Width 13.2 % (11.5-14.5); Segmented Neutrophils % 72.3 %; White Blood Count 9.7 K/mcL (4.3-11.1)
[2019-12-24 15:17] LABS: BUN/Creatinine Ratio 8 (6-26); Blood Urea Nitrogen 8 mg/dL (6-20); Calcium 9.5 mg/dL (8.6-10.3); Carbon Dioxide 26 mEq/L (23-29); Chloride 106 mEq/L (98-107); Glucose 109 mg/dL (70-105); Osmolality,Calculated 289 (280-300); Potassium 3.9 mEq/L (3.5-5.1); Sodium 140 mEq/L (136-145); Troponin I < 0.03 ng/mL (< 0.04); eGFR For African Americans > 60 (> 60); eGFR For Non-African Americans > 60 (> 60)
[2019-12-24] MEDS ORDERED: Acetaminophen 325 MG TABLET PO PRN (15:26)
[2019-12-24] MEDS ORDERED: *HR* Promethazine 25 MG/ML VIAL IVP PRN (15:26)
[2019-12-24] MEDS ORDERED: MOM Conc 10 ML UD.LIQ PO PRN (15:26)
[2019-12-24] MEDS ORDERED: Mag Hydrox/Al Hydrox/Simeth 30 ML UDC PO PRN (15:26)
[2019-12-24] MEDS ORDERED: Naloxone 0.4 MG/ML INJ IVP PRN (15:26)
[2019-12-24] MEDS ORDERED: Ondansetron 4 MG/2 ML VIAL IVP PRN (15:26)
[2019-12-24] MEDS ORDERED: Nitroglycerin 0.4 MG TAB.SUBL SL PRN (15:29)
[2019-12-24 17:39] VITALS: BP 143/97
[2019-12-24] MEDS ORDERED: *HR* Heparin 5,000 UNIT/ML VIAL SQ SCH (18:00)
[2019-12-25] MEDS ORDERED: Aspirin Enteric Coated 81 MG Tablet PO SCH (09:00)
== END 2019-12-24 18:59 | disposition left against medical advice (07) ==
LOC: 3BNU 13:52 → EMEROOARM 13:52 → 3BNU 17:09
PROVIDERS: ADMIT Internal Medicine; ATTEND Internal Medicine